=== PATIENT | male | born 1965 | race Caucasian/White ===

== ENCOUNTER 2018-09-20 07:09 | Day surgery (SDC) | payer OTHER ==
[2018-09-20] MEDS ORDERED: LIDOCAINE 4% SOLUTION 50 ML BTL (07:42)
[2018-09-20] MEDS ORDERED: FENTAnyl 50 MCG/ML VIAL (09:05)
[2018-09-20] MEDS ORDERED: MIDAZOLAM 1 MG/ML 2 ML INJ ×2 (09:05)
== END 2018-09-20 14:39 | disposition home or self-care (01) ==
LOC: GIL 07:09
DX: R19.5 Other fecal abnormalities (principal); K21.0 Gastro-esophageal reflux disease with esophagitis; D12.4 Benign neoplasm of descending colon; D12.3 Benign neoplasm of transverse colon; K29.30 Chronic superficial gastritis without bleeding
CPT/HCPCS: 43239; 88305; 88312; 88313